=== PATIENT | male | born 1990 | race Caucasian/White ===

== ENCOUNTER 2019-10-20 12:38 | Emergency (ER) | payer BC, MEDICAID ==
[~2019-10-20] VITALS: Ht 175.3 cm; Wt 83.9 kg
[2019-10-20 13:27] LABS: BASOPHILS # (AUTO) 0.1 K/uL (0.0-8.0); BASOPHILS % (AUTO) 0.9 % (0.0-2.0); EOSINOPHILS # (AUTO) 0.1 K/uL (0.0-0.7); EOSINOPHILS % (AUTO) 1.9 % (0.0-7.0); HEMATOCRIT 43.3 % (36.7-47.1); HEMOGLOBIN 14.3 g/dL (12.5-16.3); LYMPHOCYTES # (AUTO) 2.1 K/uL (20.0-40.0); LYMPHOCYTES % (AUTO) 31.2 % (20.5-51.5); MEAN CORPUSCULAR HEMOGLOBIN 28.7 uug (23.8-33.4); MEAN CORPUSCULAR HGB CONC 33 g/dL (32.5-36.3); MEAN CORPUSCULAR VOLUME 86.9 fL (73.0-96.2); MONOCYTES # (AUTO) 0.6 K/uL (2.0-10.0); MONOCYTES % (AUTO) 8.9 % (0.0-11.0); NEUTROPHILS # (AUTO) 3.9 K/uL (1.8-8.9); NEUTROPHILS % (AUTO) 57.1 % (38.5-71.5); PLATELET COUNT (AUTO) 326 K/uL (152-348); RED BLOOD CELL COUNT(AUTO) 4.98 MIL/uL (4.06-5.63); WHITE BLOOD COUNT (AUTO) 6.8 K/uL (3.6-10.2)
--- NOTE | 2019-10-20 13:30 | NUR ---
PATIENT ALREADY SEEN BY DOCTOR ERENDIRA
[2019-10-20 13:33] LABS: CREATININE 0.8 mg/dL (0.6-1.3)
--- NOTE | 2019-10-20 15:40 | NUR ---
PATIENT GIVEN DISCHARGE PAPER WORK. AND WORK/SCHOOL EXCUSE FORM. PATIENT VERBALIZES UNDERSTANDING
[2019-10-20 15:41] VITALS: BP 139/77
== END 2019-10-20 15:43 | disposition home or self-care (01) ==
LOC: ER 12:38
DX: R07.89 Other chest pain (principal); Z60.2 Problems related to living alone
CPT/HCPCS: 36415; 70030-TC; 71045; 85025; 93005; A4663

== ENCOUNTER 2019-10-22 06:30 | Emergency (ER) | payer BC ==
[~2019-10-22] VITALS: Ht 175.3 cm; Wt 81.6 kg
[2019-10-22] MEDS ORDERED: METOCLOPRAMIDE HCL 10 MG/2 ML VIAL IV ONE (07:00)
[2019-10-22] MEDS ORDERED: IV NORMAL SALINE 500 ML BAG IV ONE (07:00)
[2019-10-22] MEDS ORDERED: KETOROLAC TROMETHAMINE 30 MG INJ IVP ONE (07:00)
[2019-10-22] MEDS ORDERED: KETOROLAC TROMETHAMINE 30 MG INJ ONE (07:01)
[2019-10-22] MEDS ORDERED: METOCLOPRAMIDE HCL 10 MG/2 ML VIAL ONE (07:01)
--- NOTE | 2019-10-22 08:40 | NUR ---
Patient discharged to home in stable conditon. Written and verbal after care instructions given. Patient verbalizes understanding of instructions.pt walks in steady gait. pt says feels better, ready to go home. pt accompanied by so.
[2019-10-22 08:46] VITALS: BP 131/79
== END 2019-10-22 08:46 | disposition home or self-care (01) ==
LOC: ER 06:33
DX: R51 Headache (principal); F17.200 Nicotine dependence, unspecified, uncomplicated; Z60.2 Problems related to living alone
CPT/HCPCS: 96374; 96375; 99283; J1885; J2765; A4663; J7030

== ENCOUNTER 2025-06-08 07:47 | Emergency (ER) | payer BC, OTHER ==
[~2025-06-08] VITALS: Ht 170.2 cm; Wt 78.9 kg
[2025-06-08 08:18] LABS: PLATELET COUNT (AUTO) 338 K/uL (152-348); RED BLOOD CELL COUNT(AUTO) 4.77 MIL/uL (4.06-5.63); RED CELL DISTRIBUTION WIDTH 14.0 % (12.1-16.2); WHITE BLOOD COUNT (AUTO) 6.2 K/uL (3.6-10.2)
[2025-06-08 08:22] LABS: CREATININE 0.8 mg/dL (0.6-1.3); SODIUM SERUM 148.0 mmol/L (136-145); UREA NITROGEN, BLOOD 20.0 mg/dL (7-18)
[2025-06-08 08:28] LABS: ASPARTATE AMINOTRANSFERASE 26.0 U/L (15-37); TOTAL PROTEIN, SERUM 7.9 g/dL (6.4-8.2)
[2025-06-08 08:36] LABS: *BILIRUBIN,URIN NEGATIVE (NEGATIVE); *BLOOD, URINE NEGATIVE (NEGATIVE); *CLARITY,URINE CLEAR (CLEAR); *COLOR,URINE YELLOW (YELLOW); *KETONES,URINE NEGATIVE (NEGATIVE); *PROTEIN,URINE NEGATIVE (NEGATIVE); *UROBILINOGEN,URINE 0.2 E.U./dl (NORMAL); LEUKOCYTE ESTERASE ,URINE NEGATIVE (NEGATIVE); NITRITE, URINE NEGATIVE (NEGATIVE); UGLUCOSE NEGATIVE (NEGATIVE)
[2025-06-08] MEDS ORDERED: ACETAMINOPHEN 650 MG SUPP.RECT RC ONE (09:17)
[2025-06-08] MEDS ORDERED: KETOROLAC TROMETHAMINE 15 MG INJ ONE (09:17)
[2025-06-08] MEDS ORDERED: LIDOCAINE 5% PATCH TD ONE (09:17)
[2025-06-08] MEDS: ACETAMINOPHEN 650 MG SUPP.RECT RC ONE (09:26)
[2025-06-08] MEDS: KETOROLAC TROMETHAMINE 15 MG INJ IVP ONE (09:26)
[2025-06-08] MEDS: IV NORMAL SALINE 1000 ML BAG IV ONE (09:26)
[2025-06-08] MEDS: LIDOCAINE 5% PATCH TD ONE (09:27)
[2025-06-08] MEDS ORDERED: IBUP-1955 PO (09:52)
[2025-06-08] MEDS ORDERED: LIDO30AD10 TP (09:52)
[2025-06-08] MEDS ORDERED: CYCL5TAB PO (09:52)
[2025-06-08 09:58] VITALS: BP 120/77
[2025-06-08 11:06] VITALS: BP 120/77; TEMP 98.4; O2SAT 99
== END 2025-06-08 11:07 | disposition home or self-care (01) ==
LOC: ER 07:47
DX: S39.012A Strain of muscle, fascia and tendon of lower back, initial encounter (principal); Z88.7 Allergy status to serum and vaccine; F12.90 Cannabis use, unspecified, uncomplicated; X50.0XXA Overexertion from strenuous movement or load, initial encounter; Y93.89 Activity, other specified; Y92.89 Other specified places as the place of occurrence of the external cause; Y99.9 Unspecified external cause status
CPT/HCPCS: 99283; 96374; 96361; 80076; 80048; 81003; 83690; 85025; 36415; J1885; J7040; A4606; A4663